=== PATIENT | female | born 1935 | race Caucasian/White ===

== ENCOUNTER 2018-08-10 18:50 | Inpatient (IN) ==
[2018-08-10 19:44] LABS: Basophils % 0.3 % (0.0-0.8); Eosinophils # 0.2 10*3/uL (0.0-0.87); Eosinophils % 2.1 % (0.00-10.9); Hematocrit 40.5 VOL% (35.7-47.0); Hemoglobin 12.7 GM/DL (12.0-16.0); Immature Granulocytes % 0.5 %; Immature Granulocytes Absolute 0.04 #; Lymphocytes # 1.5 10*3/uL (1.4-4.0); Lymphocytes % 19.9 % (21.3-54.2); Mean Corpuscular HGB Conc 31.4 GM/DL (32-36); Mean Corpuscular Volume 88.6 FL (87-102); Mean Platelet Volume 10.1 FL (9.6-12.0); Monocytes % 7.7 % (1.7-12.7); Neutrophils % 69.5 % (38.7-73.9); Platelet Count 362 T/CUMM (130-400); Red Blood Count 4.57 MC/CUMM (3.8-5.5); White Blood Count 7.7 T/CUMM (4-12)
[2018-08-10 20:01] LABS: Alanine Aminotransferase 21 U/L (13-56); Albumin 3.7 G/DL (3.4-5.0); Alkaline Phosphatase 87 U/L (45-117); Aspartate Amino Transferase 13 U/L (0-37); Bilirubin,Total < 0.39 MG/DL (0.2-1.0); Blood Urea Nitrogen 26 MG/DL (7-18); Calcium 9.3 MG/DL (8.5-10.1); Glucose 118 MG/DL (74-106); Osmolality,Calculated 278.8 MOS/KG (273-304); Total Protein 7.5 G/DL (6.4-8.3); Troponin I < 0.015 NG/ML (0.00-0.045)
[2018-08-10] MEDS ORDERED: ACETAMINOPHEN 325 MG TABLET ONE (23:05)
[2018-08-11] MEDS ORDERED: DIAZEPAM 5 MG TABLET PO ONE (07:39)
[2018-08-11] MEDS ORDERED: ceFAZolin 1,000 MG VIAL IRRIG ONE (07:39)
[2018-08-11] MEDS ORDERED: ceFAZolin 1,000 MG in SYRINGE 1 EACH IV ONE (07:39)
[2018-08-11] MEDS ORDERED: diphenhydrAMINE CAP 25 MG CAPSULE PO ONE (07:39)
[2018-08-11] MEDS ORDERED: SODIUM CHLORIDE 0.9% 1,000 ML IV SCH (08:00)
[2018-08-11] MEDS ORDERED: FUROSEMIDE 40 MG TABLET PO SCH (08:30)
[2018-08-11] MEDS ORDERED: TEMAZEPAM 15 MG CAPSULE PO SCH (08:30)
[2018-08-11] MEDS: ASCORBIC ACID 500 MG TABLET PO SCH (08:57)
[2018-08-11] MEDS: HydrOXYzine PAMOATE 50 MG CAPSULE PO SCH ×2 (08:57→17:32)
[2018-08-11] MEDS: ATORVASTATIN 20 MG TABLET PO SCH (08:58)
[2018-08-11] MEDS: DULoxetine 30 MG CAPSULE PO SCH (08:58)
[2018-08-11] MEDS: GABAPENTIN 300 MG CAPSULE PO SCH ×3 (08:58→21:29)
[2018-08-11] MEDS: SPIRONOLACTONE 25 MG TABLET PO SCH ×2 (08:58→21:30)
[2018-08-11] MEDS: PANTOPRAZOLE 40 MG TABLET PO SCH (09:01)
[2018-08-11] MEDS: LOSARTAN 50 MG TABLET PO SCH (09:01)
[2018-08-11] MEDS ORDERED: FUROSEMIDE 40 MG TABLET PO PRN (11:06)
[2018-08-11] MEDS ORDERED: LIDOCAINE 1%/EPI INJ 20 ML VIAL ONE (11:10)
[2018-08-11] MEDS ORDERED: HYDROmorphone 2 MG/1 ML VIAL ONE (11:10)
[2018-08-11] MEDS ORDERED: MIDAZOLAM 2 MG/2 ML VIAL ONE (11:10)
[2018-08-11] MEDS ORDERED: TISSUE ADHESIVE 1 EACH APPLICATOR TOP ONE (11:11)
[2018-08-11] MEDS ORDERED: MAGNESIUM HYDROXIDE SUSP 30 ML UDCUP PO PRN (16:49)
[2018-08-11] MEDS ORDERED: diphenhydrAMINE CAP 25 MG CAPSULE PO PRN (16:49)
[2018-08-11] MEDS ORDERED: ZALEPLON 5 MG CAPSULE PO SCH (21:00)
[2018-08-12] MEDS: HydrOXYzine PAMOATE 50 MG CAPSULE PO SCH ×2 (00:25→09:26)
[2018-08-12 03:25] LABS: Basophils % 0.3 % (0.0-0.8); Eosinophils # 0.2 10*3/uL (0.0-0.87); Hematocrit 41.5 VOL% (35.7-47.0); Immature Granulocytes % 0.4 %; Immature Granulocytes Absolute 0.04 #; Lymphocytes # 1.8 10*3/uL (1.4-4.0); Lymphocytes % 18.1 % (21.3-54.2); Mean Corpuscular HGB Conc 31.3 GM/DL (32-36); Mean Corpuscular Volume 88.1 FL (87-102); Monocytes % 9.3 % (1.7-12.7); Neutrophils % 69.9 % (38.7-73.9); Platelet Count 304 T/CUMM (130-400); Red Blood Count 4.71 MC/CUMM (3.8-5.5); Red Cell Distribution Width 14.8 % (9.3-17.3); White Blood Count 9.8 T/CUMM (4-12)
[2018-08-12 03:48] LABS: Calcium 9.1 MG/DL (8.5-10.1); Osmolality,Calculated 278.8 MOS/KG (273-304)
[2018-08-12] MEDS ORDERED: METOPROLOL SUCCINATE XL 25 MG TABLET PO SCH (09:00)
[2018-08-12] MEDS: ASCORBIC ACID 500 MG TABLET PO SCH (09:25)
[2018-08-12] MEDS: DULoxetine 30 MG CAPSULE PO SCH (09:25)
[2018-08-12] MEDS: GABAPENTIN 300 MG CAPSULE PO SCH (09:26)
[2018-08-12] MEDS: SPIRONOLACTONE 25 MG TABLET PO SCH (09:26)
[2018-08-12] MEDS: LOSARTAN 50 MG TABLET PO SCH (09:26)
[2018-08-12] MEDS: ATORVASTATIN 20 MG TABLET PO SCH (09:26)
[2018-08-12] MEDS: PANTOPRAZOLE 40 MG TABLET PO SCH (09:26)
[2018-08-12] MEDS ORDERED: METOPROLOL SUCCINATE XL 50 MG TABLET PO SCH (11:17)
[2018-08-12 12:18] VITALS: BP 135/66
== END 2018-08-12 14:55 | disposition home or self-care (01) | DRG 244 ==
LOC: N.ED 18:50 → N.EDINP 20:18 → N.TELES 20:52
PROVIDERS: ADMIT Internal Medicine Cardiovascular Disease; ATTEND Internal Medicine Cardiovascular Disease